=== PATIENT | male | born 1960 | race Native Hawaiian/Other Pacific Islander ===

== ENCOUNTER 2016-09-07 07:57 | Inpatient (IN) | payer OTHER ==
[2016-09-03 10:30] LABS: PLATELET COUNT 228 K/uL (142-355)
[2016-09-03 10:48] LABS: POTASSIUM 3.6 mmol/L (3.6-5.2)
[2016-09-03 11:07] LABS: PARTIAL THROMBOPLASTIN TIME 24.6 SECONDS (24.5-33.6)
[2016-09-07] VITALS (13 sets, daily range): BP systolic 119–146; BP diastolic 61–75; TEMP 97.1–97.9; Ht 175.3 cm; Wt 133.0 kg
[~2016-09-07] VITALS: Ht 175.3 cm; Wt 133.0 kg
[2016-09-08] VITALS: BP 128/77; TEMP 97.9
[2016-09-08 04:00] VITALS: BP 145/73; TEMP 97.7
[2016-09-08 04:17] LABS: PLATELET COUNT 207 K/uL (142-355)
[2016-09-08 04:18] LABS: POTASSIUM 3.7 mmol/L (3.6-5.2)
[2016-09-08 08:00] VITALS: BP 150/62; TEMP 97.8
[2016-09-08 11:52] VITALS: BP 157/84; TEMP 97.8
[2016-09-08 16:11] VITALS: BP 130/64; TEMP 97.6
[2016-09-08 20:17] VITALS: BP 167/92; TEMP 97.7
[2016-09-09] VITALS (9 sets, daily range): BP systolic 122–154; BP diastolic 70–93; TEMP 97.1–98.1
[2016-09-09 04:36] LABS: PLATELET COUNT 214 K/uL (142-355)
[2016-09-09 04:57] LABS: POTASSIUM 3.5 mmol/L (3.6-5.2); SODIUM 131 mmol/L (136-145)
[2016-09-10 00:59] VITALS: BP 132/78; TEMP 97.9
[2016-09-10 04:00] VITALS: BP 141/80; TEMP 97.7
[2016-09-10 04:59] LABS: PLATELET COUNT 223 K/uL (142-355)
[2016-09-10 05:18] LABS: POTASSIUM 3.8 mmol/L (3.6-5.2)
[2016-09-10 08:00] VITALS: BP 122/57; TEMP 97.8
[2016-09-10 12:00] VITALS: BP 133/65; TEMP 98.1
== END 2016-09-10 13:15 | disposition home or self-care (01) | DRG 355 ==
LOC: OR 07:57 → MED/SURG 15:12 → OR 15:12 → MED/SURG 15:12
PROVIDERS: ADMIT Student in an Organized Health Care Education/Training Program
PROC: 0WUF0JZ Supplement Abdominal Wall with Synthetic Substitute, Open Approach (ICD-10-PCS; principal; 2016-09-07)
DX: K43.2 Incisional hernia without obstruction or gangrene (principal)
CPT/HCPCS: 36415; 80048; 83735; 85027; 85610; 85730; 93005; 96365; 96366; 96367; 96372; C1729; C1781; J0330; J0690; J1170; J1644; J2250; J2270; J2704; J2710; J3010; J3490